=== PATIENT | female | born 1950 | race Caucasian/White ===

== ENCOUNTER 2017-08-19 06:00 | Outpatient (CLI) | payer OTHER ==
[~2017-08-19 06:00] MED LIST: AMBIEN10 MG; COZAAR100 MG; CRESTOR10 MG; PAXIL40 MG; PEPCID40 MG PO; SYNTHROID75 MCG; TRAZODONE HCL5 GM; VISTARIL50 MG; ZOFRAN8 MG PO
== END 2017-08-19 06:05 | disposition home or self-care (01) ==
LOC: LAB 06:00 → ADM 08:30 → CIR.AMB 08-24 07:30 → EDSTATUS 08-24 08:30
DX: M20.22 Hallux rigidus, left foot (principal); Z01.810 Encounter for preprocedural cardiovascular examination; Z01.812 Encounter for preprocedural laboratory examination

== ENCOUNTER 2017-08-25 11:04 | Outpatient (CLI) | payer OTHER | END 2017-08-25 11:30 | disposition home or self-care (01) | LOC: NUCLEAR 11:04 | DX: I20.1 Angina pectoris with documented spasm (principal) | CPT/HCPCS: 78452; 93017; A9500; J1250 ==

== ENCOUNTER 2017-12-07 06:00 | Day surgery (SDC) | payer OTHER ==
[~2017-12-07 06:00] MED LIST changes: +CLONAZEPAM2 MG PO; +LAMICTAL25 M1 PO; +SEROQUEL XR150 MG PO; +SINGULAIR 10MG10 MG PO; +SYMBICORT 16010.2 GM IH; +VENTOLIN HFA18 GM IH
[2017-12-07] MEDS ORDERED: CEFADROXIL500 MG PO (09:09)
[2017-12-07] MEDS ORDERED: TRAM1TAB98 PO (09:09)
== END 2017-12-07 13:35 | disposition home or self-care (01) ==
LOC: CIR.AMB 06:00
DX: M23.322 Other meniscus derangements, posterior horn of medial meniscus, left knee (principal); M23.362 Other meniscus derangements, other lateral meniscus, left knee; M17.12 Unilateral primary osteoarthritis, left knee; M65.862 Other synovitis and tenosynovitis, left lower leg

== ENCOUNTER 2018-09-20 07:06 | Day surgery (SDC) | payer OTHER ==
[~2018-09-20 07:06] MED LIST changes: +CEFADROXIL500 MG PO; +TRAM1TAB98 PO
[2018-09-20] MEDS ORDERED: DUI500 PO (11:52)
[2018-09-20] MEDS ORDERED: NABUMETONE750 MG PO (11:52)
== END 2018-09-20 15:05 | disposition home or self-care (01) ==
LOC: CIR.AMB 07:06
DX: M20.32 Hallux varus (acquired), left foot (principal)

== ENCOUNTER 2020-06-07 13:00 | Emergency (ER) | payer OTHER ==
[~2020-06-07] VITALS: Ht 124.5 cm; Wt 72.6 kg
[~2020-06-07 13:00] MED LIST changes: +DUI500 PO; +NABUMETONE750 MG PO
[2020-06-08] MEDS ORDERED: MEDROLPACK PO (13:25)
== END 2020-06-08 13:34 | disposition home or self-care (01) ==
LOC: ER 13:00
DX: J45.998 Other asthma (principal); Z03.818 Encounter for observation for suspected exposure to other biological agents ruled out

== ENCOUNTER → 2020-11-09 | Outpatient (CLI) | payer OTHER ==
[~2020-11-09] MED LIST changes: +MEDROLPACK PO
== END | disposition home or self-care (01) ==
LOC: SONOGRAMA 08:09 → MAMO-SONO 11:00
PROVIDERS: ATTEND Internal Medicine Hematology & Oncology
DX: M75.102 Unspecified rotator cuff tear or rupture of left shoulder, not specified as traumatic (principal)

== ENCOUNTER 2024-08-05 16:42 | Emergency (ER) | payer OTHER ==
[~2024-08-05] VITALS: Ht 152.4 cm; Wt 72.6 kg
[2024-08-05] MEDS ORDERED: ATORVASTATIN CA10 MG PO (16:58)
[2024-08-05] MEDS ORDERED: VENLAFAXINE HC150 MG PO (16:58)
[2024-08-05 18:02] LABS: HEMATOCRIT 38.6 % (36.0-45.00); HEMOGLOBIN 13.6 g/dL (12.0-15.00); MEAN CORPUSCULAR HEMOGLOBIN 33.7 pg (27.00-32.0); MEAN CORPUSCULAR HGB CONC 35.1 g/dl (32.0-36.0); PLATELET COUNT 151 K/uL (150-450); RED BLOOD COUNT 4.02 M/uL (4.00-6.00); RED CELL DISTRIBUTION WIDTH 13.9 % (11.5-14.5)
[2024-08-05 23:16] LABS: ABG PH 7.438 (7.35-7.45); ABG PO2 78.6 mmHg (80-100); ABG pCO2 36.1 mmHg (35-45); BASE EXCESS 0.2 mmol/l; BICARBONATE 23.9 mmol/l (23-25); allen test SATISFACTORY; o2 21 %; puncture site RADIAL RIGHT
== END 2024-08-05 19:17 | disposition home or self-care (01) ==
LOC: ER 16:42
PROVIDERS: General Practice
DX: R05.9 Cough, unspecified (principal); Z20.822 Contact with and (suspected) exposure to COVID-19; Z88.5 Allergy status to narcotic agent